=== PATIENT | male | born 1975 | race Caucasian/White ===

== ENCOUNTER 2020-07-12 10:29 | Emergency (ER) | payer MEDICAID ==
[~2020-07-12] VITALS: Ht 190.5 cm; Wt 90.9 kg
[~2020-07-12 10:29] MED LIST: CIPR2.5D21 OP; NO HOME MEDS
== END 2020-07-12 11:27 | disposition home or self-care (01) ==
LOC: ER 10:30
DX: R05 Cough (principal); M79.10 Myalgia, unspecified site; R09.81 Nasal congestion; G89.29 Other chronic pain; M54.9 Dorsalgia, unspecified; F12.10 Cannabis abuse, uncomplicated; Z88.6 Allergy status to analgesic agent; Z88.5 Allergy status to narcotic agent; Z79.899 Other long term (current) drug therapy
CPT/HCPCS: 36415; 71045; 99283

== ENCOUNTER 2025-06-18 08:53 | Emergency (ER) | payer BC, MEDICAID ==
[~2025-06-18] VITALS: Ht 190.5 cm; Wt 80.5 kg
[2025-06-18 08:58] VITALS: TEMP 97.7
--- NOTE | 2025-06-18 09:23 | Physician Documentation ---
History of Present Illness ~ Chief Complaint: Rib pain Stated Complaint: RIB PAIN Time Seen by MD: 09:04 Primary Medical Doctor: HOMERO Mode of Arrival: POV HPI 49-year-old male presenting with left-sided chest wall pain He tells me that a week or 2 ago he ran into a gate latch with the left side of his chest. Since that time he has had some intermittent pain in the left side of his chest. When he woke up this morning the pain was worse. He states it is located in the lateral and posterior left chest. It is worse with movement and when he coughs. He denies any fevers or infectious symptoms. No productive cough. No other associated symptoms. He has not tried any pain medications, nothing makes it better Tetanus within 5 Years?: Yes Allergies: Coded Allergies: acetaminophen (Verified Allergy, Mild, itch, 06/18/25) hydrocodone bit (Verified Allergy, Mild, itch, 06/18/25) Active Prescriptions See Medication Reconciliation Form. Medication Reconciliation Scheduled Ciprofloxacin Hcl Ophth* (Ciloxan 0.35 Ophth Drops*), 2 DROP OP [id number] Miscellaneous Medications Home Med List (No Home Medications), (Reported) Past Medical History Past Medical History: Chronic Back Pain Past Surgical History: no surgical history Alcohol Use: None Drug Use: marijuana Lives with: Family Lives In: Home Review of Systems Constitutional: Denies: fever Respiratory: Reports: cough Cardiovascular: Reports: chest pain Physical Exam Vital Signs: Temperature: 97.7, Source: Temporal, Heart Rate: 76, Respiratory Rate: 15, BP: 125/78, Pulse Oximetry: 96, Weight: 80.500 Physical Exam General: This is a pleasant and overall well-appearing middle-aged man who is sitting in bed drinking a large carton of chocolate milk HEENT: Atraumatic, oropharynx is moist Heart: Regular rate and rhythm, normal-appearing peripheral perfusion Lungs: Clear breath sounds bilateral, normal work of breathing, normal oxygen saturation on room air Chest wall: There is a bruise and superficial abrasion over the left lateral chest wall. There is mild generalized tenderness but no reproducible focal bony point tenderness on palpation of the ribs Neuro: Alert and oriented Psychiatric: Calm and cooperative with exam Progress Results/Orders Results/Orders Orders - DANAY DURON MD Uni Ribs With Pa Chest (06/18/25 09:00) Completed Orders - DANAY DURON MD Uni Ribs With Pa Chest (06/18/25 09:00) Vital Signs 06/18/25 06/18/25 06/18/25 08:58 09:09 09:21 Temp 97.7 Pulse 81 76 Resp 18 16 15 B/P (MAP) 134/77 125/78 (94) Pulse Ox 97 96 EKG/XRAY/CT/US/VASC/MRI Chest X-Ray : Additional Comments I personally interpreted the x-ray, and it shows: No pneumothorax, no significant displaced rib fracture or pulmonary edema. Radiology report shows a nondisplaced left 8th rib fracture Medical Decision Making Additional information obtaine: N/A Findings Not applicable Differential Dx:Considerations: Include: Chest wall contusion, Pneumothorax, Rib fracture Additional Comment The patient presents with left-sided chest wall pain. He did have a recent injury. On exam he has an abrasion but no other concerning findings. He has normal oxygen saturations. Chest x-ray shows normal lungs, no pneumothorax. He does have the possible left 8th rib fracture per the radiology report. No other dangerous cause identified. I doubt PE or heart related process. He will be discharged with anti-inflammatories and home care instructions for presumed rib fracture. Return precautions given Departure Time of Disposition: 09:44 Disposition: 01 HOME / SELF CARE / HOMELESS Impression: Primary Impression: Fracture of rib Condition: Stable Discharge Instructions: Rib Fracture Referrals: NO PRIMARY CARE PROVIDER (PCP) Education Educated: Patient Educated regarding: diagnosis, treatment Signature Scribe Signature: na Attestation: DANAY Santso MD Jun 18, 2025 09:23
--- NOTE | 2025-06-18 09:29 | RADIOLOGY REPORT ---
FRONTAL CHEST AND multiple left RIB RADIOGRAPHS HISTORY: left side TECHNIQUE: Multiple views of the left ribs with frontal view of the chest. COMPARISON: None. FINDINGS: The trachea is midline. The cardiac silhouette and mediastinum are within normal limits. No pneumothorax, pleural effusions, or consolidations. There is nondisplaced left 8th rib fracture. No radiopaque foreign bodies. Impression: 1. Nondisplaced left 8th rib fracture. 2. No pneumothorax.
[2025-06-18 09:59] VITALS: BP 123/74; PULSE 84; RESP 14; O2SAT 96
== END 2025-06-18 10:07 | disposition home or self-care (01) ==
LOC: ER 08:53
DX: S22.32XA Fracture of one rib, left side, initial encounter for closed fracture (principal); G89.29 Other chronic pain; F12.90 Cannabis use, unspecified, uncomplicated; Z88.8 Allergy status to other drugs, medicaments and biological substances; Z88.5 Allergy status to narcotic agent; W22.8XXA Striking against or struck by other objects, initial encounter; Y93.89 Activity, other specified; Y92.89 Other specified places as the place of occurrence of the external cause; Y99.8 Other external cause status
CPT/HCPCS: 71101; 99283